=== PATIENT | female | born 1995 | race African-American/Black ===

== ENCOUNTER → 2017-12-01 | Outpatient (CLI) | payer BC | END | disposition home or self-care (01) | LOC: C.LAB1850 11:09 | PROVIDERS: ATTEND Obstetrics & Gynecology | DX: Z30.9 Encounter for contraceptive management, unspecified (principal) ==

== ENCOUNTER → 2017-12-15 | Outpatient (CLI) | payer BC | END | disposition home or self-care (01) | LOC: C.LAB1850 12:32 | PROVIDERS: ATTEND Obstetrics & Gynecology | DX: Z30.9 Encounter for contraceptive management, unspecified (principal) ==